=== PATIENT | female | born 1990 | race Caucasian/White ===

== ENCOUNTER → 2017-09-11 22:12 | Observation (INO) ==
[2017-09-11 21:15] LABS: Amphetamine Screen,Urine Negative ng/mL (Cutoff=1000); Barbiturate Screen,Urine Negative ng/mL (Cutoff=200); Benzodiazepines Screen,Urine Negative ng/mL (Cutoff=200); Cannabinoid Screen,Urine Negative ng/mL (Cutoff = 50); Cocaine Screen,Urine Negative ng/mL (Cutoff= 300); Opiate Screen,Urine Negative ng/mL (Cutoff=300); Phencyclidine Screen,Urine Negative ng/mL (Cutoff=25)
--- NOTE | 2017-09-11 22:02 | OB/GYN Progress Note ---
Date of Encounter: 09/11/17 Time of Encounter: 21:58 - Assessment and Plan (1) 38 weeks gestation of Current Visit: Yes Status: Acute (2) Right hip pain Current Visit: Yes Status: Acute Patient pain seems leg has occurred with descent lower into pelvis and from being up walking all day. Patient denies she has felt pain contractions, or abdominal tightening, therefore cervical exam deferred. Discussed etiology of lower hip and back pain and last weeks of with patient. Discharged home with when to return to triage precautions. Patient verbalized understanding Subjective - Subjective Interval history: 38+6 weeks gestation patient states she is locking on the grocery store and started to have pain and her right buttock, that also wrapped around her lower abdomen. Patient states she has been up walking a lot today, and now just feels kind of a cramping sensation in her buttock onto her right hip. Patient she has never felt this pain before. Reports good movement, denies vaginal bleeding, leaking of fluid or contractions Antepartum ROS: movement normal, no loss of fluid, no vaginal bleeding, no contractions Objective - Exam FHR: auscultation normal FHR comments: Baseline 125 Auscultation: bilateral: normal Abdomen: Present: normal appearance, soft, gravid Cervical dilation: Deferred
== END | disposition home or self-care (01) ==
LOC: 1NENULAB
PROVIDERS: ADMIT Advanced Practice Midwife; ATTEND Advanced Practice Midwife

== ENCOUNTER 2017-09-15 04:00 | Inpatient (IN) ==
[2017-09-15] MEDS ORDERED: Famotidine 20 MG/2 ML VIAL IVP PRN (04:24)
[2017-09-15] MEDS ORDERED: Naloxone 0.4 MG/ML INJ IVP PRN (04:24)
[2017-09-15] MEDS ORDERED: Lidocaine 1% 20 ML MDV INFILT PRN (04:24)
[2017-09-15] MEDS ORDERED: Ondansetron 4 MG/2 ML VIAL IVP PRN (04:24)
[2017-09-15] MEDS ORDERED: Metoclopramide 10 MG/2 ML VIAL IVP PRN (04:24)
[2017-09-15] MEDS ORDERED: Ringers Solution, Lactated 1,000 ML IVC SCH (04:30)
[2017-09-15] MEDS: miSOPROStol 25 MCG TABLET VG PRN ×2 (04:52→11:21)
[2017-09-15 05:05] LABS: Basophils % 0.3 %; Eosinophils # 0.3 K/mcL (0.0-0.6); Eosinophils % 3.6 %; Hematocrit 33.3 % (35.3-44.9); Hemoglobin 10.6 g/dL (11.5-15.4); Immature Granulocytes % 0.3 % (0-4); Lymphocytes # 1.8 K/mcL (0.6-4.6); Lymphocytes % 20.7 %; Mean Corpuscular HGB Conc 31.8 g/dL (31.6-35.5); Mean Corpuscular Volume 91.2 fL (83.0-100.0); Mean Platelet Volume 11.8 fL (9.4-12.4); Monocytes # 0.6 K/mcL (0.0-1.3); Monocytes % 6.5 %; Neutrophils # 5.9 K/mcL (1.6-8.9); Platelet Count 199 K/mcL (140-400); Red Blood Count 3.65 M/mcL (3.82-4.97); Red Cell Distribution Width 13.8 % (11.5-14.5); Segmented Neutrophils % 68.6 %
[2017-09-15 05:25] LABS: Amphetamine Screen,Urine Negative ng/mL (Cutoff=1000); Barbiturate Screen,Urine Negative ng/mL (Cutoff=200); Benzodiazepines Screen,Urine Negative ng/mL (Cutoff=200); Cannabinoid Screen,Urine Negative ng/mL (Cutoff = 50); Cocaine Screen,Urine Negative ng/mL (Cutoff= 300); Opiate Screen,Urine Negative ng/mL (Cutoff=300); Phencyclidine Screen,Urine Negative ng/mL (Cutoff=25)
--- NOTE | 2017-09-15 07:25 | Anesthesia Evaluation PreOp ---
Date of Encounter: 09/15/17 Time of Encounter: 07:16 - Past History Planned Operation: vaginal del, G1 induction IUGR 39wks Cardiac History: Denies any Significant Hx Pulmonary History: Denies Any Significant HX MANAGER SCIENCE History: Denies Any Significant HX Other Medical History: Denies Any Significant HX Anesthesia History: No Prior Anesthetic Complications, Past Anesthesia Alcohol Use: none Drug use: none Medications and Allergies One Tablet 1 tab PO DAILY 09/11/17 [History] DiphenhydraMINE [Benadryl] 25 mg PO PRN PRN 09/15/17 [History] 3 Allergy/AdvReac Type Severity Reaction Status Date / Time No Known Allergies Allergy Verified 09/15/17 04:35 Anesthesia Results - Labs 09/15/17 04:45 Anesthesia Exam - HEENT Pupil (Motor): Pupils equal Mallampati: II Teeth: Normal Oral Opening: Greater than 3 - MANAGER SCIENCE LOC: Oriented MANAGER SCIENCE Motor: Normal RUE, Normal LUE, Normal RLE, Normal LLE, Normal Face MANAGER SCIENCE Sensory: Normal: RUE, LUE, RLE, LLE, Face - Cardiac Rhythm: Regular Murmur: None - Pulmonary Breath Sounds: bilateral Clear Respiratory Effort: Symmetrical Anesthesia Assess/Plan ASA Score: 2 Modified [place] Scale for Level of Consciousness: Cooperative, oriented, and tranquil Anesthetic Plan: General, Regional Monitoring Plan: Standard Monitors Recovery Plan: PACU
[2017-09-15] MEDS ORDERED: EPHEDrine 50 MG/ML VIAL IVP PRN (07:26)
[2017-09-15] MEDS ORDERED: Epidural Premix (fent/bupiv) 110 ML EP SCH (07:30)
--- NOTE | 2017-09-15 08:11 | OB/GYN History & Physical ---
Date of Encounter: 09/15/17 Time of Encounter: 07:25 Assessment and Plan (1) 39 weeks gestation of Current visit: Yes Status: Acute Plan for IOL Patient has received Cytotec. (2) IUGR (intrauterine growth restriction) Current visit: Yes Status: Acute Plan for IOL. History of Present Illness Chief complaint: Induction of Labor HPI: Ms. Thao is a 27 year old female at 39w3d that presents to L&D for induction of labor. complicated by IUGR. No VB or LOF. Good FM. Labs: Blood type: O+ Rubella negative hepatitis nonreactive T. Pallidium negative Varicella positive GBS negative Past Med Surg Social Fam HX - Past Medical History Medical history: no medical history Psychiatric history: depression - Past Surgical History Surgical History: appendectomy - Social History Smoking Status: Former smoker Smokeless Tobacco Status: No Alcohol use: none Drug use: none - Family History Sister Family Member Ethnicity: Non- Living Status: Still Living Hx Family Cardiac Disorders: No Hx Family Respiratory Disorders: No Hx Family Cancer: No Hx Family GI Disorders: No Hx Family Genitourinary Disorders: No Hx Family Endocrine Disorder: No Hx Family Musculoskeletal Disorders: No Hx Family Neuromuscular Disorders: No Hx Family Neurologic Disorders: No Hx Family HEENT Disorders: No Hx Family Autoimmune Disorders: No Hx Family Reproductive Disorders: No Hx Family Psychosocial Disorders: No Hx Family Medical Disorders: No Obstetrical History - Pregnancies : 1 Para: 0 Medications and Allergies One Tablet 1 tab PO DAILY 09/11/17 [History] DiphenhydraMINE [Benadryl] 25 mg PO PRN PRN 09/15/17 [History] 3 Allergy/AdvReac Type Severity Reaction Status Date / Time No Known Allergies Allergy Verified 09/15/17 04:35 Review of System OB All systems PM: reviewed and no additional remarkable complaints except as stated Exam - Constitutional Constitutional: well developed, well nourished, no acute distress - HEENT HEENT: Normocephaly, Mucus Membranes Moist - Neck Neck exam: full ROM, normal inspection - Lungs Respiratory exam: CTAB - Cardiovascular Cardiovascular exam: RRR, +S1, +S2 - Abdomen Abdomen: Present: bowel sounds normal, gravid, non tender - Extremities Extremities exam: pedal edema (trace) Results Result Diagrams: 09/15/17 04:45 Abnormal lab results RBC 3.65 M/mcL (3.82-4.97) L 09/15/17 04:45 Hgb 10.6 g/dL (11.5-15.4) L 09/15/17 04:45 Hct 33.3 % (35.3-44.9) L 09/15/17 04:45 All other labs normal. - VTE Reasons for not Prescribing Prophylaxis: Treatment not Indicated - Low risk for VTE - Attending Attestation Mrs Thao is a 27 y/o @ 39+3 weeks who presents for IOL with asymmetric IUGR (AC<5%). I have reviewed resident note and I agree.
--- NOTE | 2017-09-15 10:59 | OB Labor Progress Note ---
Date of Encounter: 09/15/17 Time of Encounter: 10:50 Labor Progress Note - Subjective Subjective: Pt has no concerns or complaints currently. - Vital Signs Vital Signs: VSS - Cervix Cervix: 1cm per RN at last exam. - Heart Tones Heart Tones: Category I - [place]: 2-3 mins - Plan Plan: Plan to place jacinto bulb and give 2nd dose of Cytotec.
--- NOTE | 2017-09-15 11:29 | OB Labor Progress Note ---
Date of Encounter: 09/15/17 Time of Encounter: 11:27 Labor Progress Note - Subjective Subjective: Patient resting comfortably in bed - Vital Signs Vital Signs: VSS - Cervix Cervix: 1/60/-1 - Heart Tones Heart Tones: 130 category I - [place]: irregular ctx - Interventions Interventions: Attempted to place intracervical jacinto without success. Patient and fetus tolerated well. - Plan Plan: Continue routine labor management GBS negative Patient may have nubain/epidural upon request Consider jacinto if not >3cm after next cytotec dose Anticipate vaginal delivery POC per consult with Dr Castanon
[2017-09-15] MEDS ORDERED: Epidural Premix (fent/bupiv) 110 ML EP ONE (13:33)
--- NOTE | 2017-09-15 14:03 | OB Labor Progress Note ---
Date of Encounter: 09/15/17 Time of Encounter: 14:27 Labor Progress Note - Subjective Subjective: Jacinto bulb placement attempted, was not successful. Was given 2nd dose of cytotec. Patient denies any complaints or concerns currently. She states pain is much better since receiving Nubain. - Vital Signs Vital Signs: VSS - Cervix Cervix: 2cm per plastics patternmaker at last exam - Heart Tones Heart Tones: Category I - [place]: 2-4 mins - Plan Plan: Plan to recheck after 2nd dose of cytotec complete. Consider jacinto bulb or pitocin depending on cervical change.
[2017-09-15] MEDS: *HR* Nalbuphine 10 MG/ML AMPUL IVP PRN ×2 (14:14→17:48)
--- NOTE | 2017-09-15 17:47 | OB Labor Progress Note ---
Date of Encounter: 09/15/17 Time of Encounter: 17:45 Labor Progress Note - Subjective Subjective: Patient resting comfortably in bed. States contraction pain is increasing. - Vital Signs Vital Signs: VSS - Cervix Cervix: 2/70/-1 soft anterior - Heart Tones Heart Tones: 140 category I - [place]: Contractions every 2-4 minutes - Interventions Interventions: Intracervical jacinto balloon placed without difficulty. Patient and fetus tolerated well. - Plan Plan: Continue routine labor management GBS negative Patient may have epidural upon request Patient may have second dose of nubain upon request Consider AROM vs Pitocin after jacinto bulb is displaced Anticipate vaginal delivery POC per consult with Dr Castanon
--- NOTE | 2017-09-15 18:46 | Anesthesia Procedures ---
Date of Encounter: 09/15/17 Time of Encounter: 18:27 Procedures: Anesthesia - Epidural/Spinal Patient ID/Chart reviewed: Yes Patient examined: Yes OB Eval: Gestational age: term OB Eval: : 1 OB Eval: Contractions: Non-stressed pattern Supplemental Oxygen: None/Room Air Site Prep: Aseptic Technique, Sterile prep and drape, 0.5% Chlorhexidine/Alcohol Patient position: upright Local Anesthetic: Lidocaine 1% Amount of Local Anesthetic used: 2 Touhy Needle Gauge: 18 Touhy Needle Depth (cm): 7 Catheter Depth at Skin (cm): 11 Test Dose (1.5% Lido + Epi): Volume given (mls): 3 Test Dose Result: Negative Loading Dose: Other: 10ml from solution Loading Dose Administered: Thru Catheter Infusion Med: 0.125% Bupivacaine w/ 2 mcg/ml Fentanyl Infusion Rate (mls/hr): [address]: Tegaderm, Tape Interspace Used: L4-L5 Loss of Resistance (DRAKE): Yes (saline) Blood: No CSF: No Paresthesia: Yes (when threading cath, immediately resolved) Procedure: vss though out proc, FHR stable per RN;s
[2017-09-15] MEDS ORDERED: Oxytocin 20 units/ LR 1000 mL 20 UNIT/1,000 ML BAG IVC SCH (20:00)
[2017-09-16] MEDS ORDERED: Epidural Premix (fent/bupiv) 110 ML EP ONE ×2 (00:20→05:52)
[2017-09-16] MEDS ORDERED: *HR* ROPIVACAINE 1% PF 100 MG/10 ML VIAL ONE (04:40)
--- NOTE | 2017-09-16 04:53 | OB Labor Progress Note ---
Date of Encounter: 09/16/17 Time of Encounter: 04:51 Labor Progress Note - Subjective Subjective: doing well, SROM, s/p jacinto for cervical ripening, s/p epidural - Vital Signs Vital Signs: VSS - Cervix Cervix: 5 - Heart Tones Heart Tones: 120/mod moises/+accels, occ moises decels - [place]: Q1-2 - Plan Plan: pit at some point was at 20 but halfed to 10, cont close monitoring of the strip
--- NOTE | 2017-09-16 05:07 | Anesthesia Progress Note ---
Date of Encounter: 09/16/17 Time of Encounter: 05:01 Anesthesia Note - Note Note: 09/16/17 05:05 c/o lower abd, patient made slight change/progress, neg aspiration bolus 8ml 0.5 % rop plain. VSS though out.
--- NOTE | 2017-09-16 06:08 | OB Labor Progress Note ---
Date of Encounter: 09/16/17 Time of Encounter: 06:06 Labor Progress Note - Subjective Subjective: Patient resting comfortably in bed with epidural in place - Vital Signs Vital Signs: VSS - Cervix Cervix: 7/90/0 3cm caput on center of presenting vertex - Heart Tones Heart Tones: 135 - [place]: Contractions every 2-3 minutes - Interventions Interventions: IUPC placed without difficulty. Patient and fetus tolerated well - Plan Plan: Continue routine labor management GBS negative Pitocin infusing; titrate as needed Encouraged frequent position changes Anticipate vaginal delivery POC per consult with Dr Castanon
--- NOTE | 2017-09-16 07:15 | OB Labor Progress Note ---
Date of Encounter: 09/16/17 Time of Encounter: 07:14 Labor Progress Note - Subjective Subjective: patient pushing - Vital Signs Vital Signs: VSS - Cervix Cervix: +1 station - Heart Tones Heart Tones: 120/mod moises/+accels, occ moises decels - Plan Plan: anticipate
--- NOTE | 2017-09-16 09:02 | OB/GYN Procedure Note ---
Delivery - Delivery Date: 09/16/17 Provider: Gilmar Escobar Intrapartum events: none Delivery induction: oxytocin, jacinto, misoprostol Delivery monitor: external FHT, external uterine, internal uterine Anesthesia: epidural Quantitated Blood Loss: 125 - (s) Infant A Delivery Date: 09/16/17 Delivery Time: 08:23 Presentation: vertex Position: ANNEMARIE Route of delivery: Gender: Male Viability: Viable Pounds: 6 Ounces: 8 Weight Gram: 2945 kg at 1 minute: 9 at 5 mins: 9 Shoulder Dystocia: not encountered Specimens collected: cord blood Placenta: spontaneous Cord: 3 umbilical vessels - Repair Episiotomy: none Laceration Description: Perineal - 2nd Degree - Complications Delivery complications: none Delivery comments: Induction of labor for IUGR, progressed to complete, maternal bearing efforts to of live-born male. Vertex delivered, ANNEMARIE, shoulders and body easily followed. No nuchal cord or shoulder dystocia encountered. Vigorous placed on maternal abdomen, apgars 9/9. Cord clamped and cut after pulsation ceased. Placenta delivered spontaneously and complete upon inspection. Second degree laceration repaired in the usual fashion. EBL 125ml. Atif Iqbal DO PGY-2 preformed delivery. - Disposition Mom disposition: stable in LDR disposition: stable in LDR - Attending Attestation I was present for the entire delivery and supervised the resident. I reviewed her note and agree with its contents.
[2017-09-16] MEDS ORDERED: Oxytocin 20 units/ LR 1000 mL 20 UNIT/1,000 ML BAG IVC SCH (10:11)
[2017-09-16] MEDS ORDERED: Acetaminophen 325 MG TABLET PO PRN (10:11)
[2017-09-16] MEDS ORDERED: Lanolin 7 G OINT...G. TP PRN (10:11)
[2017-09-16] MEDS ORDERED: Benzocaine/Menthol 56 GM AEROSOL SPRAY TP PRN (10:11)
[2017-09-16] MEDS ORDERED: Measles/Mumps/Rubella Vacc 0.5 ML VIAL SQ PRN (10:11)
[2017-09-16] MEDS ORDERED: Prenatal Vit/FA 1 EACH TABLET PO SCH (10:11)
[2017-09-16] MEDS: Ibuprofen 600 MG TABLET PO PRN ×2 (10:51→19:57)
[2017-09-17] MEDS: Ibuprofen 600 MG TABLET PO PRN (02:41)
[2017-09-17 03:08] LABS: Basophils % 0.1 %; Eosinophils # 0.2 K/mcL (0.0-0.6); Eosinophils % 1.3 %; Hematocrit 26.2 % (35.3-44.9); Hemoglobin 8.8 g/dL (11.5-15.4); Immature Granulocytes % 0.4 % (0-4); Lymphocytes # 1.8 K/mcL (0.6-4.6); Lymphocytes % 15.3 %; Mean Corpuscular HGB Conc 33.6 g/dL (31.6-35.5); Mean Corpuscular Volume 89.4 fL (83.0-100.0); Mean Platelet Volume 11.9 fL (9.4-12.4); Monocytes # 0.6 K/mcL (0.0-1.3); Neutrophils # 9.1 K/mcL (1.6-8.9); Platelet Count 179 K/mcL (140-400); Red Blood Count 2.93 M/mcL (3.82-4.97); Red Cell Distribution Width 13.9 % (11.5-14.5); Segmented Neutrophils % 77.9 %
[2017-09-17 07:48] VITALS: BP 120/73
--- NOTE | 2017-09-17 08:27 | Discharge Summary ---
Date of Encounter: 09/17/17 Time of Encounter: 08:24 - Discharge Diagnosis (1) Vaginal delivery Priority: Primary Status: Acute Comments: Continue routine care discharge home today follow up with Dr. Castanon in 4-6 weeks (2) Breast feeding status of mother Priority: Secondary Status: Acute Comments: support prn - Discharge Medications Prescriptions: Ibuprofen [Motrin] 600 mg PO Q6HR PRN #60 tablet PRN Reason: Cramping Breast Pump [BREAST PUMP] 1 each .ROUTE AD #1 each Home Medications: One Tablet 1 tab PO DAILY 09/11/17 [History] Benzocaine/Menthol [place] [Dermoplast Kimper] 1 appl TP QID PRN aerosol 09/17/17 [Rx] Breast Pump [BREAST PUMP] 1 each .ROUTE AD #1 each 09/17/17 [Rx] Ferrous Sulfate 325 mg PO DAILY tablet 09/17/17 [Rx] Ibuprofen [Motrin] 600 mg PO Q6HR PRN #60 tablet 09/17/17 [Rx] Lanolin [Lansinoh] 1 appl TP QID PRN oint...g. 09/17/17 [Rx] Vit/FA 1 each PO DAILY tablet 09/17/17 [Rx] Allergies/Adverse Reactions: 3 Allergy/AdvReac Type Severity Reaction Status Date / Time No Known Allergies Allergy Verified 09/15/17 04:35 Data Procedures and tests throughout hospitalization: Laboratory Tests 09/15/17 09/15/17 09/17/17 04:45 04:45 02:55 WBC 8.7 11.7 H RBC 3.65 L 2.93 L Hgb 10.6 L 8.8 L D Hct 33.3 L 26.2 L MCV 91.2 89.4 MCH 29.0 30.0 MCHC 31.8 33.6 RDW 13.8 13.9 Plt Count 199 179 MPV 11.8 11.9 Immature Gran % 0.3 0.4 Seg Neutrophils % 68.6 77.9 Lymphocytes % 20.7 15.3 Monocytes % 6.5 5.0 Eosinophils % 3.6 1.3 Basophils % 0.3 0.1 Neutrophils # 5.9 9.1 H Lymphocytes # 1.8 1.8 Monocytes # 0.6 0.6 Eosinophils # 0.3 0.2 Basophils # 0.0 0.0 Urine Opiates Screen Negative Ur Barbiturates Screen Negative Ur Phencyclidine Scrn Negative Ur Amphetamines Screen Negative U Benzodiazepines Scrn Negative Urine Cocaine Screen Negative U Marijuana (THC) Screen Negative Labs on day of discharge: Labs from last 24 hours 09/17/17 02:55 WBC 11.7 H RBC 2.93 L Hgb 8.8 L D Hct 26.2 L MCV 89.4 MCH 30.0 MCHC 33.6 RDW 13.9 Plt Count 179 MPV 11.9 Immature Gran % 0.4 Seg Neutrophils % 77.9 Lymphocytes % 15.3 Monocytes % 5.0 Eosinophils % 1.3 Basophils % 0.1 Neutrophils # 9.1 H Lymphocytes # 1.8 Monocytes # 0.6 Eosinophils # 0.2 Basophils # 0.0 Date of admission: 09/15/17 04:23 Primary care physician: Xavier Billingsley MD Consults: 09/16/17 10:11 Consult to Graduation Coach [CONS] Routine Comment: Vaginal delivery, consult needed Discharging clinician: Evelia Yang Anticipated date of discharge: 09/17/17 - Patient Status Disposition: Home, Self-Care Condition: Good Functional capacity at discharge: independent ambulation - Discharge Instructions Follow Up With: Xavier Billingsley MD [Primary Care Provider] - Jaydon Castanon MD [Partnered Physician] - - Diet and Activity Activity: increase activity as tolerated Diet: regular diet Hospital Course Reason for admission: active labor Delivery: Episiotomy: none Laceration: 2nd degree Other procedures: none complications: none Discharge diagnosis: IUP at term delivered [place] baby: male (breast feeding) Time Attestation: Total time spent providing and/or coordinating discharge services: Time Spent: Less than 30 minutes Exam - Constitutional Vitals: Temp Pulse Resp BP Pulse Ox 98.1 F 84 20 120/73 99 09/17/17 07:47 09/17/17 07:47 09/17/17 07:47 09/17/17 07:47 09/17/17 07:47 General appearance IM: A&O X 3, pleasant, answers questions appropriately - Respiratory Respiratory exam: Present: CTAB - Cardiovascular Cardiovascular exam IM: Present: RRR, +S1, +S2 - GI/Abdominal GI/Abdominal exam IM: normal bowel sounds - Uterine Tone: Firm Uterus Position: At Umbilicus, Midline - Extremities Exam Extremities exam IM: Present: full ROM, normal capillary refill, normal inspection - Neurological Exam Neurological exam: alert, oriented X3, reflexes normal
== END 2017-09-17 14:30 | disposition home or self-care (01) | DRG 560 ==
LOC: 1NENULAB 04:23 → 1NENUOBS 09-16 11:01
PROVIDERS: ADMIT Student in an Organized Health Care Education/Training Program; ATTEND Student in an Organized Health Care Education/Training Program